=== PATIENT | female | born 1960 | race Caucasian/White ===

== ENCOUNTER 2021-01-28 11:21 | Outpatient (CLI) | payer OTHER, SELFPAY ==
--- NOTE | ~2021-01-28 | MMUS_ITS ---
EXAMINATION: MM diagnostic shahrzad BI w alton, US breast LT limited HISTORY: Palpable lump at the 12:00 location in the left breast. TECHNIQUE: Craniocaudal, mediolateral, and mediolateral oblique 3-D tomosynthesis images of the breas ts were performed and synthetic 2-D images were generated. CAD analysis was submitted and interpreted . High resolution limited left breast ultrasound was performed. COMPARISON: 04/18/2012 BREAST PARENCHYMAL COMPOSITION: There are scattered areas of fibroglandular density. FINDINGS: MAMMOGRAPHIC FINDINGS: There is no evidence of suspicious mass, calcification, or architectural distortion in either breast to suggest malignancy. There has been no suspicious interval change. No mammographic correlate is id entified for the reported palpable abnormality of the left breast. ULTRASOUND: There is no evidence of focal abnormal solid or cystic mass in the vicinity of the reported palpable abnormality of concern in the left breast. IMPRESSION: 1. No specific mammographic or sonographic correlate is identified for the reported palpable abnormal ity of concern. Further evaluation at this time should be based on clinical assessment. Continued fol low-up physical examination is recommended. 2. Recommend routine screening mammography in one year. BI-RADS Category 1: Negative Reviewed, dictated and finalized at location A. IMPRESSION: 1. No specific mammographic or sonographic correlate is identified for the repo rted palpable abnormality of concern. Further evaluation at this time should be based on clinical assessment. Continued follow-up physical examination is caitlin mmended. 2. Recommend routine screening mammography in one year. BI-RADS Category 1: Negative
== END 2021-01-28 11:22 | disposition home or self-care (01) ==
PROVIDERS: PCP Internal Medicine; Visit Provider Nurse Practitioner
DX: N63.20 Unspecified lump in the left breast, unspecified quadrant (principal); R92.2 Inconclusive mammogram
CPT/HCPCS: 76642; 77062; 77066; G0279

== ENCOUNTER 2021-07-01 13:57 | Outpatient (CLI) | payer OTHER, SELFPAY ==
--- NOTE | 2021-07-01 15:08 | ECG_ITS ---
Measurements Intervals [place] Rate: 74 P: 49 ND: 176 QRS: 8 QRSD: 94 T: 53 QT: 374 QTc: 416 Interpretive Statements SINUS RHYTHM DELAYED PRECORDIAL R/S TRANSITION LEFT VENTRICULAR HYPERTROPHY BASELINE ARTIFACT- I, II ,III, AVR, AVL, AVF BORDERLINE ECG Electronically Signed On 07-01-2021 15:25:47 CDT by Wilberto Stanley D.O.
[2021-07-01 15:29] LABS: Basophils Absolute Auto 0.1 K/mm3 (0.0-0.1); Basophils Percent Auto 0.6 % (0.2-1.2); Eosinophils Absolute Auto 0.2 K/mm3 (0-0.3); Eosinophils Percent Auto 2.2 % (0-4.4); Hematocrit 39.9 % (37.0-47.0); Immature Granulocyte Absolute 0.04 K/mm3 (0.00-0.031); Immature Granulocyte Percent A 0.4 % (0-0.5); Lymphocytes Absolute Auto 2.69 K/mm3 (0.9-3.2); Lymphocytes Percent Auto 28.5 % (18.3-44.2); Mean Corpuscular HGB Conc 32.6 g/dl (32-36); Mean Corpuscular Hemoglobin 31.4 pg (26-34); Mean Corpuscular Volume 96.4 fl (80-100); Mean Platelet Volume 9.2 fl (7.4-10.4); Monocytes Absolute Auto 0.7 K/mm3 (0.1-0.6); Monocytes Percent Auto 7.8 % (2.6-8.5); Neutrophils Absolute Auto 5.7 K/mm3 (1.3-6.7); Neutrophils Percent Auto 60.5 % (45.5-73.1); Platelet Count Result 340 k/mm3 (150-375); Red Blood Count 4.14 M/mm3 (4.2-5.4); Red Cell Distribution Width 12.6 % (11.5-14.5); White Blood Count 9.4 K/mm3 (4.5-10.0)
[2021-07-01 16:24] LABS: Urine Cotinine POSITIVE
== END 2021-07-01 13:58 | disposition home or self-care (01) ==
PROVIDERS: PCP Internal Medicine; Visit Provider Orthopaedic Surgery
DX: M16.12 Unilateral primary osteoarthritis, left hip (principal); Z01.818 Encounter for other preprocedural examination; R94.31 Abnormal electrocardiogram [ECG] [EKG]
CPT/HCPCS: 80307; 85025; 86850; 86900; 86901; 93005

== ENCOUNTER → 2021-07-02 00:58 | Outpatient (CLI) | payer OTHER, SELFPAY ==
[2021-07-02 17:04] LABS: SARS-CoV-2 RNA PCR Negative
== END ==
PROVIDERS: PCP Internal Medicine; Visit Provider Orthopaedic Surgery
DX: Z01.812 Encounter for preprocedural laboratory examination (principal); Z20.822 Contact with and (suspected) exposure to COVID-19
CPT/HCPCS: C9803; U0003; U0005

== ENCOUNTER 2021-12-05 10:30 | Outpatient (CLI) | payer OTHER, SELFPAY ==
[2021-12-05 12:38] LABS: Basophils Absolute Auto 0.1 K/mm3 (0.0-0.1); Basophils Percent Auto 0.6 % (0.2-1.2); Eosinophils Absolute Auto 0.1 K/mm3 (0-0.3); Eosinophils Percent Auto 0.8 % (0-4.4); Hematocrit 40.1 % (37.0-47.0); Hemoglobin 12.9 g/dL (12.0-15.0); Immature Granulocyte Absolute 0.02 K/mm3 (0.00-0.031); Immature Granulocyte Percent A 0.2 % (0-0.5); Lymphocytes Absolute Auto 2.23 K/mm3 (0.9-3.2); Lymphocytes Percent Auto 25.6 % (18.3-44.2); Mean Corpuscular HGB Conc 32.2 g/dl (32-36); Mean Corpuscular Hemoglobin 30.4 pg (26-34); Mean Corpuscular Volume 94.6 fl (80-100); Mean Platelet Volume 9.5 fl (7.4-10.4); Monocytes Absolute Auto 0.5 K/mm3 (0.1-0.6); Monocytes Percent Auto 5.7 % (2.6-8.5); Neutrophils Absolute Auto 5.8 K/mm3 (1.3-6.7); Neutrophils Percent Auto 67.1 % (45.5-73.1); Platelet Count Result 370 k/mm3 (150-375); Red Blood Count 4.24 M/mm3 (4.2-5.4); Red Cell Distribution Width 13.2 % (11.5-14.5); White Blood Count 8.7 K/mm3 (4.5-10.0)
[2021-12-05 12:48] LABS: Add Urine Microscopic? YES; Appearance Urine Cloudy (Clear); Bilirubin Urine Negative (Negative); Blood Urine 1+ (Negative); Color Urine Yellow (Yellow); Glucose Urine UA Negative (Negative); Ketones Urine Negative (Negative); Leukocyte Esterase Ur Negative LEU/UL (Negative); Mucus Urine Rare /lpf; Nitrate Urine Negative (Negative); Protein Urine Negative (Negative); RBC Urine 0-2 /hpf (0-2); Specific Grav Ur 1.026 (1.001-1.035); Squamous Epithelial Cell Urine Rare /hpf (Few); Urobilinogen Urine Negative mg/dL (<2.0); WBC Urine 0-3 /hpf
[2021-12-05 12:58] LABS: Prothrombin Time 12.9 Seconds (11.1-14.7)
[2021-12-05 12:59] LABS: Partial Thromboplastin Time 31.2 SECONDS (22.3-36.8); Urine Cotinine NEGATIVE
[2021-12-05 13:02] LABS: Albumin Level 4.4 g/dL (3.5-5.1); Anion Gap 5 mmol/L (8-16); Blood Urea Nitrogen 17 mg/dL (7-17); Calcium 9.1 mg/dL (8.4-10.2); Carbon Dioxide 29 mmol/L (22-30); Chloride 105 mmol/L (98-107); Estimated Glomerular Filt Rate > 60; Glucose 91 mg/dL (65-110); Sodium 139 mmol/L (137-145)
== END 2021-12-05 10:31 | disposition home or self-care (01) ==
LOC: ANHSURGERY 10:34
PROVIDERS: PCP Internal Medicine; Visit Provider Orthopaedic Surgery
DX: M16.12 Unilateral primary osteoarthritis, left hip (principal); Z01.818 Encounter for other preprocedural examination
CPT/HCPCS: 80048; 80307; 81001; 82040; 83036; 85025; 85610; 85730; 87081

== ENCOUNTER 2021-12-20 11:17 | Inpatient (IN) | payer OTHER, SELFPAY ==
[2021-12-05 10:40] VITALS: BMI 27.6
--- NOTE | 2021-12-05 11:00 | PC.NURSE ---
Report to the Outpatient Waiting Room, entrance under the green pavilion located off [facility], at time _0600 on date _12/20/21 . OR Time: . - You and your visitor will be asked a series of questions to screen for COVID 19 for your protection. - A mask is required within the hospital. Preoperative COVID Testing Requirements: No COVID Test needed if: (proof is required; if not received patient will have Rapid Test prior to entry) - Patient has received COVID Vaccine at least 14 days prior to procedure date or - Patient has positive COVID test result within last 90 days of surgery date. COVID Test needed if above criteria is not met If not COVID vaccinated a COVID test must be conducted within 72 hours of surgery and patient is asked to isolate self from time of testing until procedure. You will go to the [facility] for your COVID testing. The [facility] is located at the corner of [address] [facility]. You will only be called if COVID results are positive and your surgeon may reschedule your elective surgery date. Patients may have clear liquids (water, carbonated beverages, clear teas, apple juice) until 3 hours prior to surgery with a maximum of 20 ounces. - No food from midnight until time of surgery - Infants may have breast milk until 4 hours before surgery, formula 6 hours prior to surgery. - Children will be allowed to drink immediately following surgery. If applicable, please bring a bottle or sippy cup to assist with drinking. Juice, water, soda, and popsicles are readily available. For infants on formula, please bring formula the day of surgery. Pacifiers are allowed. Take the following medications with a SIP of water the morning of surgery: ___AMLODIPINE,CITALOPRAM,DIAZEPAM Medications to discontinue per physician ____ALL VITAMINS AND SUPPLEMENTS 3 DAYS PRE OP Date to take last dose__12/16/21 Please no make-up, nail uzbek, hairspray, perfume, deodorant, or body powder the day of surgery. No jewelry (including any body piercings) or valuables the day of surgery, leave them at home. Please take a shower or bath the night before, or the morning of, surgery with an antibacterial soap. Wear comfortable, loose fitting clothing. Children are encouraged to wear pajamas. - Jewelry must be removed prior to entering the operating room. Rings and piercings that are not removed may be cut off. - The hospital will not accept responsibility for valuables. - Please leave all valuables, including medications, at home the day of surgery. If you are going home after surgery, a licensed petrol tanker driver must drive you home. - NO public transportation without another adult. - We recommend that an adult stay with you for 24 hours following discharge. - We also recommend that you do not drive, make important decision, drink alcoholic beverages, or take any drugs that were not prescribed by your health care provider for at least 24 hours after your discharge time. For Pediatric surgeries, we recommend two adults accompany the child home (only one inside the building at this time). One visitor will be allowed to accompany the patient into the hospital. Patients visitor will be instructed to remain with patient at all times or leave the building. We will allow the visitor to come back to the postoperative area when patient is ready. Follow any additional instructions given to you from your surgeon. VERBAL/WRITTEN instructions given to __PATIENT and asked if any additional questions and then verbalized understanding. Patient advised to call surgeon office or pre surgery nurse liaison [phone] if any additional questions.
[2021-12-05 11:22] VITALS: BP 123/71; PULSE 72; RESP 18; TEMP 36.7; O2SAT 98
[2021-12-20] VITALS (17 sets, daily range): BP systolic 110–151; BP diastolic 53–76; PULSE 67–90; RESP 12–17; TEMP 36.1–37.5; O2SAT 93–100
--- NOTE | ~2021-12-20 | XR_ITS ---
EXAMINATION: XR hip LT 1V DATE: 12/20/2021 10:25 INDICATION: Left hip arthroplasty. Postop. TECHNIQUE: A single view of left hip was obtained. COMPARISON: Pelvis and hip radiographs 09/01/2021 FINDINGS: There is a total left hip arthroplasty in near-anatomic alignment. No fracture. IMPRESSION: 1. Total left hip arthroplasty in near-anatomic alignment. Reviewed, dictated and finalized at location A.
[2021-12-20] MEDS: ACETAMINOPHEN 500 MG TABLET 1000 MG PO (06:19)
--- NOTE | 2021-12-20 06:30 | WPDANESEPPF ---
Anes - Initial Pre Proc Eval Procedure: Operation Date: 12/20/21 07:30 Proposed Procedures p Left Total Hip Arthroplasty - Christopher Jeter MD Date/Time: 12/20/21 06:30 Surgeon: Christopher Jeter MD Pre Op Diagnosis: Lt Hip DJD Patient Data Age: 61 Gender: F Height: 1.61 m Weight: 71.4 kg Last Vital Signs Temp 36.7 C 12/05/21 11:22 Pulse 72 12/05/21 11:22 Resp 18 12/05/21 11:22 BP 123/71 12/05/21 11:22 Pulse Ox 98 12/05/21 11:22 Allergies Allergy/AdvReac Type Severity Reaction Status Date / Time No Known Allergies Allergy Mild Verified 12/20/21 06:07 Home Medications Medication Instructions Recorded Confirmed Type diphenhydramine HCl [Benadryl] 50 mg PO HS 07/01/21 12/20/21 History citalopram 40 mg tablet 40 mg PO QAM #90 tablet 07/18/21 12/20/21 Rx diazepam 5 mg tablet 5 mg PO TID PRN #90 tablet 09/15/21 12/20/21 Rx dextroamphetamine-amphetamine 15 15 mg PO BID #60 tablet 11/17/21 12/20/21 Rx mg tablet amlodipine 10 mg tablet 10 mg PO EVERY OTHER DAY tablet 12/05/21 12/20/21 History melatonin 10 mg PO HS PRN 12/05/21 12/20/21 History pediatric tyczspxd-fnki-sib 1 tablet PO DAILY 12/05/21 12/20/21 History [Complete Multivitamin] Patient hx anesthesia problems: none Family hx anesthesia problems: none Results Review: All pre-operative results and documents have been reviewed as part of the pre-operative evaluation. [facility] Past Medical History Medical History ADHD (attention deficit hyperactivity disorder) Adult ADHD Angioedema Anxiety state Benign essential hypertension BMI 31.0-31.9,adult Chronic hip pain, bilateral Chronic right hip pain Degenerative joint disease (DJD) of hip Depressive disorder Depressive disorder, not elsewhere classified Encounter for long-term (current) use of other medications Fasting hyperglycemia FH: cholecystectomy GERD (gastroesophageal reflux disease) Insomnia disorder Left hip pain On buttermaker continuous churn drug therapy Osteoarthrosis Postmenopausal Screening for colon cancer Screening for lipid disorders Screening mammogram, encounter for Smoking Unspecified sinusitis (chronic) Vitamin D deficiency Surgical History Surgical History History of cholecystectomy Family History Family History Father Cerebrovascular accident Mother Family history of malignant neoplasm Other Depression Diabetes mellitus Hypertension Social History Social History Smoking packs per day: 0.25 Smoking cigarettes per day: 5.0 Years smoked: 8 Smoking pack-years: 2.00 Smoking status: Former smoker Tobacco type: cigarettes Second hand tobacco smoke exposure: No Smoking end date: 08/17/21 Additional smoking assessment comments: DENIES ANY FORM OF TOBACCO USE Alcohol intake: never Substance use: current Substance use type: amphetamines Other substance usage details: Adderall for ADHD Living arrangements: alone Gender identity (if verbalized by the patient): Female Spiritual care concerns: No Anes - Eval Final PreProcedure Day of Procedure 12/20/21 06:30 Patient weight: overweight Heart: regular rate and rhythm Lungs: clear to auscultation Airway: Mallampati scale class II Neurological: alert and oriented Last oral intake: >/= 8 hours ASA classification: II Emergent: no Anesthetic plan: proceed Anesthesia type and monitoring: general ETT and standard monitoring Results Review: All pre-operative results and documents have been reviewed as part of the pre-operative evaluation. Informed Consent: The patient's anesthetic plan and its attendant risks and benefits were discussed with the patient/family/POA. Questions were solicited and answers provided to the satisfaction of the patient/family/POA.
[2021-12-20] MEDS: LACTATED RINGERS 1,000 ML 30 ML IV CONT ×2 (06:32→10:04)
[2021-12-20] MEDS: TRANEXAMIC ACID 1,000MG/ISO100 1,000 MG/100 ML BAG 200 MG IVPB (06:59)
--- NOTE | 2021-12-20 07:21 | WPDHPUPDATE1 ---
History and Physical Update Update Date/Time: 12/20/21 07:21 History and Physical has been reviewed, including an updated exam of the patient. There are NO changes in the patient's condition. Risks, benefits, and alternatives have been discussed and questions answered. Patient agrees to proceed with procedure.
[2021-12-20] MEDS: ceFAZolin 2 GM/D5W 50 ML 2 GM/50 ML BAG IVPB ×2 (07:32→15:15)
[2021-12-20] MEDS: TRANEXAMIC ACID 1,000 MG/10 ML AMPUL 1000 MG IV PUSH (09:37)
[2021-12-20] MEDS: fentaNYL CITRATE INJ (*CRX) 100 MCG/2 ML VIAL 25 MCG IV PUSH ×6 (10:13→10:53)
--- NOTE | 2021-12-20 10:14 | W.PM.PROC2 ---
Procedure Note - Detailed Date of Procedure 12/20/21 Pre-op Diagnosis Lt Hip DJD Post-op Diagnosis Same Procedure Performed L ZONIA Surgeon Christopher Jeter MD Anesthesia General Description of Procedure THE PATIENT WAS TAKEN TO THE OPERATING ROOM IN STABLE CONDITION AND WAS PLACED IN THE LATERAL DECUBITUS AND THE LEFT LOWER EXTREMITY WAS PREPPED AND DRAPED IN THE STERILE FASHION. INCISION WAS MADE IN THE POSTERIOR LATERAL SIDE OF THE HIP, DOWN TO THE FASCIA LAYER. THE FASCIA WAS INCISED. THE HIP WAS EXPOSED. THE SHORT EXTERNAL ROTATORS WERE EXPOSED. THE SCIATIC NERVE WAS IDENTIFIED. INCISION WAS MADE THROUGH THE SHORT EXTERNAL ROTATORS AND THE CAPSULE OF THE HIP JOINT. THE HIP WAS DISLOCATED. AN OSTEOTOMY WAS MADE TO THE FEMORAL NECK ABOUT 1 CM PROXIMAL TO THE LESSER TROCHANTER. THE ACETABULUM WAS EXPOSED. THERE WAS SEVERE DJD SEEN. BEGINNING WITH A 44 REAMER THE ACETABULUM WAS REAMED TO 51 MM. A 50 MM TRIAL WAS PLACED IN 35 DEG OF ABDUCTION AND ANTEVERSION WAS IN ALIGNMENT WITH THE TRANS ACETABULAR LIGAMENT. THE FIT WAS EXCELLENT. THE TRIAL WAS REMOVED. A 52 MM BIOMET G7 COMPONENT WAS THEN TAPPED IN TO PLACE IN 35 DEG OF ABDUCTION AND ANTEVERSION IN ALIGNMENT WITH THE TRANSVERSE ACETABULAR LIGAMENT. THE FIT WAS EXCELLENT. THE ACETABULAR LINER WAS PLACED AND CHECKED FOR STABILITY. NEXT THE FEMUR WAS PREPARED WITH INITIAL CANAL FINDER THEN SEQUENTIAL BROACHING WITH A TAPERLOC HIP SYSTEM, UNTIL AN 8 BROACH FIT WELL IN 15 OF ANTEVERSION. A 0 STANDARD OFFSET NECK WITH 36 MM HEAD TRIAL WAS PLACED. THE SHUCK TEST WAS EXCELLENT AND THE STABILITY IN FLEXION AND ROTATION WAS EXCELLENT. LEG LENGTHS WERE GROSSLY EQUAL. TRIALS WERE REMOVED. A BIOMET TAPERLOC 8 STEM WAS PLACED WITH A STANDARD OFFSET NECK THE FIT WAS EXCELLENT IN 15 DEG OF ANTEVERSION. A 0 CERAMIC 36 MM FEMORAL CERAMIC HEAD WAS PLACED. THE HIP WAS TRIALED AND THE STABILITY WAS EXCELLENT WERE THE LEG LENGTHS AND THE SHUCK TEST. THE WOUND WAS IRRIGATED WITH STERILE BETADINE AND WATER FOR 3 MIN. THEN WASHED AGAIN. THE CAPSULE AND THE EXTERNAL ROTATORS WERE APPROXIMATED WITH NUMBER 1 VICRYL. THE FASCIA WITH No 2 QUIL AND THE SUB CUTANEOUS LAYER WITH 2-0 ABSORBABLE SUTURE WITH A RUNNING 3-0 SUBCUTICULAR LAYER WELL. DERMABOND WAS PLACED AND STERILE DRESSING WAS APPLIED. PATIENT WAS PLACED BACK ON TO THE SUPINE POSITION AND WAS EXTUBATED Estimated Blood Loss -250.0 Complications No immediate complications Condition Stable Disposition PACU
[2021-12-20] MEDS: diphenhydrAMINE HCl INJ 50 MG/ML VIAL 25 MG IV PUSH (11:00)
--- NOTE | 2021-12-20 11:43 | ADMGEN ---
This patient, Laura Castro, was admitted to 2 Medical Room 259-01. Patient/family oriented to hospital policies and general routines including ID bracelet, bed and alarms, visiting hours, pain management, procedures, bathroom and other care routines, personal items, smoking policy, room service/diet, and visiting hours. Information on how to activate the Rapid Response Team has been discussed. Patient/Family are encouraged to report perceived risks to care and to ask questions if they do not understand what they are told or what they should do.
[2021-12-20] MEDS: KETOROLAC 15 MG/ML VIAL (*BKC) IV PUSH ×2 (11:57→17:01)
[2021-12-20] MEDS: SODIUM CHLORIDE 0.9% IV 1,000 ML 125 ML IV CONT (11:58)
[2021-12-20] MEDS: HYDROcodone/acetaminophen (*CRX) 7.5-325 MG TABLET 1 TAB PO ×2 (14:01→21:38)
[2021-12-20] MEDS: SENNA/DOCUSATE SODIUM TABLET 2 TAB PO (17:01)
[2021-12-20] MEDS: diphenhydrAMINE HCl CAP 25 MG CAPSULE 50 MG PO (21:37)
[2021-12-20] MEDS: MORPHINE SULFATE (*CRX) 4 MG/ML INJ 3 MG IV PUSH (22:40)
[2021-12-21] MEDS: KETOROLAC 15 MG/ML VIAL (*BKC) IV PUSH ×3 (00:24→11:04)
[2021-12-21] MEDS: ceFAZolin 2 GM/D5W 50 ML 2 GM/50 ML BAG IVPB ×2 (00:27→08:41)
[2021-12-21 04:15] VITALS: BP 122/58; PULSE 80; RESP 17; TEMP 37.2; O2SAT 95
[2021-12-21 05:47] LABS: Basophils Percent Auto 0.3 % (0.2-1.2); Eosinophils Percent Auto 0.2 % (0-4.4); Hematocrit 31.4 % (37.0-47.0); Hemoglobin 10.7 g/dL (12.0-15.0); Immature Granulocyte Absolute 0.08 K/mm3 (0.00-0.031); Immature Granulocyte Percent A 0.6 % (0-0.5); Lymphocytes Absolute Auto 2.34 K/mm3 (0.9-3.2); Lymphocytes Percent Auto 16.4 % (18.3-44.2); Mean Corpuscular HGB Conc 34.1 g/dl (32-36); Mean Corpuscular Hemoglobin 30.9 pg (26-34); Mean Corpuscular Volume 90.8 fl (80-100); Mean Platelet Volume 8.8 fl (7.4-10.4); Monocytes Absolute Auto 1.3 K/mm3 (0.1-0.6); Monocytes Percent Auto 9.2 % (2.6-8.5); Neutrophils Absolute Auto 10.4 K/mm3 (1.3-6.7); Neutrophils Percent Auto 73.3 % (45.5-73.1); Platelet Count Result 252 k/mm3 (150-375); Red Blood Count 3.46 M/mm3 (4.2-5.4); Red Cell Distribution Width 12.8 % (11.5-14.5); White Blood Count 14.2 K/mm3 (4.5-10.0)
[2021-12-21 05:56] LABS: Anion Gap 4 mmol/L (8-16); Blood Urea Nitrogen 14 mg/dL (7-17); Calcium 8.4 mg/dL (8.4-10.2); Carbon Dioxide 28 mmol/L (22-30); Chloride 103 mmol/L (98-107); Estimated CRCL calculation 69 ml/min; Estimated Glomerular Filt Rate > 60; Glucose 113 mg/dL (65-110); Potassium 3.9 mmol/L (3.4-5.0); Sodium 135 mmol/L (137-145)
[2021-12-21] MEDS: polyethylene glycoL 3350 17 GM POWD.PACK PO (08:41)
[2021-12-21] MEDS: ASPIRIN 325 MG ENTERIC TABLET 650 MG PO (08:41)
[2021-12-21] MEDS: SENNA/DOCUSATE SODIUM TABLET 2 TAB PO ×2 (08:41→16:07)
[2021-12-21] MEDS: MULTIVITS W-FE,MIN CHEWABLE TABLET 1 TABLET PO (08:41)
[2021-12-21] MEDS: CITALOPRAM HYDROBROMIDE 20 MG TABLET 40 MG PO (08:41)
[2021-12-21] MEDS: HYDROcodone/acetaminophen (*CRX) 7.5-325 MG TABLET 1 TAB PO (08:52)
--- NOTE | 2021-12-21 09:18 | WPDANESPN ---
Anes - Prog Note Post-Op Date/Time: 12/21/21 09:18 Cardiovascular status: normal Respiratory status: normal Airway patency: baseline Mental status: baseline Post-Op hydration status: normal Vital Signs: Last Vital Signs Temp 98.9 F 12/21/21 04:15 Pulse 80 12/21/21 04:15 Resp 17 12/21/21 04:15 BP 122/58 L 12/21/21 04:15 Pulse Ox 95 12/21/21 04:15 Pain Score (VAS): 4 I/O: Intake & Output 12/20/21 12/21/21 12/21/21 23:59 07:59 15:59 Intake Total 640 450 0 Output Total 700 900 Balance -60 -450 0 Laboratory Tests 12/21/21 05:32 12/21/21 05:33 12/21/21 12/21/21 05:32 05:33 WBC 14.2 H RBC 3.46 L Hgb 10.7 L Hct 31.4 L MCV 90.8 MCH 30.9 MCHC 34.1 RDW 12.8 Plt Count 252 MPV 8.8 Immature Gran % (Auto) 0.6 H Neut % (Auto) 73.3 H Lymph % (Auto) 16.4 L Armstrong % (Auto) 9.2 H Eos % (Auto) 0.2 Baso % (Auto) 0.3 Lymph # (Auto) 2.34 Armstrong # (Auto) 1.3 H Eos # (Auto) 0.0 Baso # (Auto) 0.0 Abs Immat Gran (auto) 0.08 H Absolute Neuts (auto) 10.4 H Absolute Nucleated RBC 0.0 Nucleated RBC % 0.0 Sodium 135 L Potassium 3.9 Chloride 103 Carbon Dioxide 28 Anion Gap 4 L BUN 14 Creatinine 0.70 Estim Creat Clear Calc 69 Estimated GFR > 60 Glucose 113 H Calcium 8.4 Post-procedural complaints: none Patient Feedback: Patient satisfied with anesthetic care.
[2021-12-21] MEDS: ONDANSETRON INJ 4 MG/2 ML VIAL IV PUSH (09:36)
[2021-12-21 09:50] VITALS: BP 114/59; PULSE 75; RESP 12; TEMP 36.6; O2SAT 95
[2021-12-21] MEDS: PANTOPRAZOLE 40 MG TABLET PO (13:08)
[2021-12-21 13:55] VITALS: BP 112/58; PULSE 74; RESP 16; TEMP 36.9; O2SAT 95
--- NOTE | 2021-12-21 15:35 | PM.PNORT ---
Progress Note: A&P Additional Plan POD 1 DOING WELL. OK TO DC HOME IF PATIENT STABLE WITH PT. SHE WILL F/U IN 3 WEEKS Time Spent With Patient Time with patient: less than 15 minutes Subjective Subjective Date/Time Seen: 12/21/21 15:35 POD 1 DOING WELL. NO CALF PAIN Exam Extrem: Other: VSS AFEBRILE DRESSING DRY NV INTACT NEG HOMANS SIGN Objective Data Vital Signs Vital Signs: Vital Signs - 24 hr 12/20/21 17:02 12/20/21 20:00 12/20/21 20:11 Temperature 36.4 C 36.2 C L 36.2 C L Pulse Rate 68 77 77 Respiratory Rate 16 16 16 Blood Pressure 118/64 134/76 134/76 Pulse Oximetry 96 99 99 12/20/21 23:00 12/21/21 04:15 12/21/21 09:50 Temperature 37.5 C 37.2 C 36.6 C Pulse Rate 85 80 75 Respiratory Rate 17 17 12 Blood Pressure 120/65 122/58 L 114/59 L Pulse Oximetry 95 95 95 12/21/21 13:55 Temperature 36.9 C Pulse Rate 74 Respiratory Rate 16 Blood Pressure 112/58 L Pulse Oximetry 95 Intake/Output Intake/Output: Intake & Output 12/18/21 12/19/21 12/20/21 12/21/21 23:59 23:59 23:59 23:59 Intake Total 1230 1170 Output Total 700 900 Balance 530 270 Meds/Results Medications: Active Medications Generic Name Dose Route Start Last Admin Trade Name Freq PRN Reason Stop Dose Admin Acetaminophen 650 mg 12/20/21 11:17 Acetaminophen 325 Mg Tablet PO Q6H PRN Mild Pain (1-3) or Fever Hydrocodone Bitart/Acetaminophen 1 tab 12/20/21 11:17 12/21/21 08:52 Hydrocodone/Acetaminophen (*Crx) 7.5-325 Mg Tablet PO 1 tab Q3H PRN Administration Pain Rated 4-6 Amlodipine Besylate 10 mg 12/22/21 09:00 Amlodipine Besylate 5 Mg Tablet PO Q48H MEETA Aspirin 650 mg 12/21/21 09:00 12/21/21 08:41 Aspirin 325 Mg Enteric Tablet PO 650 mg DAILY MEETA Administration Citalopram Hydrobromide 40 mg 12/21/21 09:00 12/21/21 08:41 Citalopram Hydrobromide 20 Mg Tablet PO 40 mg QAM MEETA Administration Diazepam 5 mg 12/20/21 11:17 Diazepam (*Crx) 5 Mg Tablet PO TID PRN anxiety Diphenhydramine HCl 50 mg 12/20/21 21:00 12/20/21 21:37 Diphenhydramine Hcl Cap 25 Mg Capsule PO 50 mg HS MEETA Administration Hydroxyzine HCl 50 mg 12/20/21 11:17 Hydroxyzine Hcl 25 Mg Tablet PO Q4H PRN Itching Morphine Sulfate 3 mg 12/20/21 11:17 12/20/21 22:40 Morphine Sulfate (*Crx) 4 Mg/Ml Inj IV PUSH 3 mg Q3H PRN Administration Pain Rated 7-10 Multivitamins/Minerals 1 tablet 12/21/21 09:00 12/21/21 08:41 Multivits W-Fe,Min Chewable Tablet PO 1 tablet DAILY MEETA Administration Naloxone HCl 0.1 mg 12/20/21 11:17 Naloxone Hcl 0.4 Mg/Ml Vial IV PUSH Q2M PRN Opiate Reversal Ondansetron HCl 4 mg 12/20/21 11:17 12/21/21 09:36 Ondansetron Inj 4 Mg/2 Ml Vial IV PUSH 4 mg Q4H PRN Administration Nausea And Vomiting Pantoprazole Sodium 40 mg 12/21/21 12:45 12/21/21 13:08 Pantoprazole 40 Mg Tablet PO 40 mg QAM MEETA Administration Polyethylene Glycol 17 gm 12/21/21 09:00 12/21/21 08:41 Polyethylene Glycol 3350 17 Gm Powd.Pack PO 17 gm QAM [facility] Administration Senna/Docusate Sodium 2 tab 12/20/21 17:00 12/21/21 08:41 Senna/Docusate Sodium Tablet PO 2 tab BID MEETA Administration Radiology Results: ITS Impressions Hip X-Ray 12/20/21 10:47 IMPRESSION: 1. Total left hip arthroplasty in near-anatomic alignment. Labs Labs: Laboratory Results - last 24 hr 12/21/21 12/21/21 05:32 05:33 WBC 14.2 H RBC 3.46 L Hgb 10.7 L Hct 31.4 L MCV 90.8 MCH 30.9 MCHC 34.1 RDW 12.8 Plt Count 252 MPV 8.8 Immature Gran % (Auto) 0.6 H Neut % (Auto) 73.3 H Lymph % (Auto) 16.4 L Beauregard % (Auto) 9.2 H Eos % (Auto) 0.2 Baso % (Auto) 0.3 Lymph # (Auto) 2.34 Beauregard # (Auto) 1.3 H Eos # (Auto) 0.0 Baso # (Auto) 0.0 Abs Immat Gran (auto) 0.08 H Absolute Neuts (auto) 10.4 H Absolute Nucleated RBC 0.0 Nucleated RBC % 0.0
[2021-12-21] MEDS: MORPHINE SULFATE (*CRX) 4 MG/ML INJ 3 MG IV PUSH (16:11)
[2021-12-21 17:40] VITALS: BP 115/63; PULSE 77; RESP 14; TEMP 36.2; O2SAT 93
[2021-12-21 19:52] VITALS: BP 109/64; PULSE 80; RESP 17; TEMP 36.4; O2SAT 95
[2021-12-21 20:14] VITALS: O2SAT 95
[2021-12-21] MEDS: diphenhydrAMINE HCl CAP 25 MG CAPSULE 50 MG PO (20:50)
[2021-12-21] MEDS: oxyCODONE/ACETAMINOPHEN (*CRX) 5-325 MG TABLET 1 TABLET PO (21:07)
[2021-12-22 04:22] VITALS: BP 121/60; PULSE 85; RESP 17; TEMP 36.4; O2SAT 95
[2021-12-22 08:36] VITALS: RESP 18; O2SAT 95
[2021-12-22] MEDS: CITALOPRAM HYDROBROMIDE 20 MG TABLET 40 MG PO (08:46)
[2021-12-22] MEDS: amLODIPine BESYLATE 5 MG TABLET 10 MG PO (08:47)
[2021-12-22] MEDS: MULTIVITS W-FE,MIN CHEWABLE TABLET 1 TABLET PO (08:47)
[2021-12-22] MEDS: PANTOPRAZOLE 40 MG TABLET PO (08:47)
[2021-12-22] MEDS: SENNA/DOCUSATE SODIUM TABLET 2 TAB PO ×2 (08:47→16:33)
[2021-12-22] MEDS: polyethylene glycoL 3350 17 GM POWD.PACK PO (08:47)
[2021-12-22] MEDS: ASPIRIN 325 MG ENTERIC TABLET 650 MG PO (08:47)
[2021-12-22] MEDS: oxyCODONE/ACETAMINOPHEN (*CRX) 5-325 MG TABLET 1 TABLET PO ×2 (08:53→16:36)
--- NOTE | 2021-12-22 09:38 | PM.PNORT ---
Progress Note: A&P Assessment and Plan (1) S/P total hip arthroplasty: Qualifiers: Laterality: left Qualified Code(s): Z96.642 - Presence of left artificial hip joint Code(s): Z96.649 - Presence of unspecified artificial hip joint Status: Acute Assessment and Plan: POD #2: Left ZONIA Continue PT/OT. WBAT. Walker. Fall Precautions. DVT prophylaxis. SCDs. Incentive Spirometry. Pain control. Ice. Monitor dressing. Change before discharge. Dispo: Home with Home Health pending progress with PT/OT. Likely today. (2) Degenerative joint disease (DJD) of hip: Qualifiers: Osteoarthritis type: primary Laterality: bilateral Qualified Code(s): M16.0 - Bilateral primary osteoarthritis of hip Code(s): M16.9 - Osteoarthritis of hip, unspecified Status: Acute Time Spent With Patient Time with patient: less than 15 minutes Subjective Subjective Date/Time Seen: 12/22/21 09:38 Interval history: POD #2: Left ZONIA Improved progress with PT/OT this morning. Pain improved as well. Potential for discharge home today. Review of Systems Review of Systems: All systems reviewed & are unremarkable except as noted in HPI and below Constitutional: Constitutional: Denies chills, Denies fatigue, Denies fever(s), Denies night sweats and Denies weakness Cardiovascular: Cardiovascular: Denies chest pain, Denies palpitations and Denies dyspnea Respiratory: Respiratory: Denies cough, Denies dyspnea and Denies wheezing Gastrointestinal: Gastrointestinal: Denies abdominal pain, Denies diarrhea, Denies nausea and Denies vomiting Musculoskeletal: Musculoskeletal: Reports arthralgias (left hip ), Reports joint swelling (left hip ) and Denies numbness Neurologic: Denies numbness and Denies weakness Endocrine: Endocrine: Denies fatigue and Denies palpitations Allergic/Immunologic: Allergic/Immunologic: Denies wheezing Exam Const: General: comfortable and no acute distress Resp: Effort & Inspection: normal respiratory effort Cardio: Rate: regular rate Rhythm: regular rhythm GI: Inspection: non-distended Skin: General skin exam: normal color Wounds: wounds noted (incision left hip C/D/I ) Extrem: Left lower extremity: hip/thigh Details: tenderness Location: of the hip Location: laterally and anteriorly, swelling (thigh soft ) Location: of the hip (lateral. ), abnormal ROM (limitations with internal/external rotation and flexion/extension due to recent surgical intervention ) and other (incision lateral hip c/d/i. ), knee Details: normal to inspection and normal ROM; no tenderness and no swelling, lower leg (Negative Villa's Sign ) Details: no edema, ankle (+ankle dorsiflexion/plantarflexion ) Details: normal to inspection, no edema and normal ROM; no tenderness, no swelling and no warmth and foot Details: normal capillary refill, toes with normal ROM, vascular exam Details: dorsalis pedis pulse present and motor-sensory exam light-touch normal in all toes; no tenderness, no ecchymosis and no crepitus Psych: Mental Status: mental status grossly normal Affect: normal affect Objective Data Vital Signs Vital Signs: Vital Signs - 24 hr 12/21/21 09:50 12/21/21 13:55 12/21/21 17:40 Temperature 36.6 C 36.9 C 36.2 C L Pulse Rate 75 74 77 Respiratory Rate 12 16 14 Blood Pressure 114/59 L 112/58 L 115/63 Pulse Oximetry 95 95 93 12/21/21 19:52 12/21/21 20:14 12/22/21 04:22 Temperature 36.4 C L 36.4 C L Pulse Rate 80 85 Respiratory Rate 17 17 Blood Pressure 109/64 121/60 Pulse Oximetry 95 95 95 12/22/21 08:36 Temperature Pulse Rate Respiratory Rate 18 Blood Pressure Pulse Oximetry 95 Intake/Output Intake/Output: Intake & Output 12/19/21 12/20/21 12/21/21 12/22/21 23:59 23:59 23:59 23:59 Intake Total 1230 1390 Output Total 700 1600 Balance 530 -210 Meds/Results Medications: Active Medications Generic Name Dose Route Start Last Admin Trad
[2021-12-22 14:30] VITALS: BP 108/58; PULSE 83; RESP 14; TEMP 36.4; O2SAT 97
[2021-12-22] MEDS: CELECOXIB 200 MG CAPSULE PO (16:33)
[2021-12-22 20:14] VITALS: BP 93/56; PULSE 77; RESP 16; TEMP 36.4; O2SAT 95
[2021-12-22] MEDS: diphenhydrAMINE HCl CAP 25 MG CAPSULE 50 MG PO (21:39)
[2021-12-23 04:01] VITALS: BP 115/58; PULSE 79; RESP 18; TEMP 36.3; O2SAT 96
[2021-12-23] MEDS: ASPIRIN 325 MG ENTERIC TABLET 650 MG PO (08:09)
[2021-12-23] MEDS: CELECOXIB 200 MG CAPSULE PO (08:09)
[2021-12-23] MEDS: SENNA/DOCUSATE SODIUM TABLET 2 TAB PO (08:09)
[2021-12-23] MEDS: CITALOPRAM HYDROBROMIDE 20 MG TABLET 40 MG PO (08:09)
[2021-12-23] MEDS: PANTOPRAZOLE 40 MG TABLET PO (08:09)
[2021-12-23] MEDS: polyethylene glycoL 3350 17 GM POWD.PACK PO (08:09)
[2021-12-23] MEDS: MULTIVITS W-FE,MIN CHEWABLE TABLET 1 TABLET PO (08:09)
--- NOTE | 2021-12-23 09:07 | PM.PNORT ---
Progress Note: A&P Assessment and Plan (1) S/P total hip arthroplasty: Qualifiers: Laterality: left Qualified Code(s): Z96.642 - Presence of left artificial hip joint Code(s): Z96.649 - Presence of unspecified artificial hip joint Status: Acute Assessment and Plan: POD #3: Left ZONIA Continue PT/OT. WBAT. Walker. Fall Precautions. DVT prophylaxis. SCDs. Incentive Spirometry. Pain control. Ice. Monitor dressing. Change before discharge. Dispo: Home with Home Health (2) Degenerative joint disease (DJD) of hip: Qualifiers: Osteoarthritis type: primary Laterality: bilateral Qualified Code(s): M16.0 - Bilateral primary osteoarthritis of hip Code(s): M16.9 - Osteoarthritis of hip, unspecified Status: Acute Subjective Subjective Date/Time Seen: 12/23/21 09:07 Post Op day: 3 Interval history: POD #3: Left ZONIA Improved progress with PT/OT this morning. Pain improved as well. Ready for discharge home today. Review of Systems Review of Systems: All systems reviewed & are unremarkable except as noted in HPI and below Constitutional: Constitutional: Denies chills, Denies fatigue, Denies fever(s), Denies night sweats and Denies weakness Cardiovascular: Cardiovascular: Denies chest pain, Denies palpitations and Denies dyspnea Respiratory: Respiratory: Denies cough, Denies dyspnea and Denies wheezing Gastrointestinal: Gastrointestinal: Denies abdominal pain, Denies diarrhea, Denies nausea and Denies vomiting Musculoskeletal: Musculoskeletal: Reports arthralgias (left hip ), Reports joint swelling (left hip ) and Denies numbness Neurologic: Denies numbness and Denies weakness Endocrine: Endocrine: Denies fatigue and Denies palpitations Allergic/Immunologic: Allergic/Immunologic: Denies wheezing Exam Const: General: comfortable and no acute distress Resp: Effort & Inspection: normal respiratory effort Cardio: Rate: regular rate Rhythm: regular rhythm GI: Inspection: non-distended Skin: General skin exam: normal color Wounds: wounds noted (incision left hip C/D/I ) Extrem: Left lower extremity: hip/thigh Details: tenderness Location: of the hip Location: laterally and anteriorly, swelling (thigh soft ) Location: of the hip (lateral. ), abnormal ROM (limitations with internal/external rotation and flexion/extension due to recent surgical intervention ) and other (incision lateral hip c/d/i. ), knee Details: normal to inspection and normal ROM; no tenderness and no swelling, lower leg (Negative Villa's Sign ) Details: no edema, ankle (+ankle dorsiflexion/plantarflexion ) Details: normal to inspection, no edema and normal ROM; no tenderness, no swelling and no warmth and foot Details: normal capillary refill, toes with normal ROM, vascular exam Details: dorsalis pedis pulse present and motor-sensory exam light-touch normal in all toes; no tenderness, no ecchymosis and no crepitus Psych: Mental Status: mental status grossly normal Affect: normal affect Objective Data Vital Signs Vital Signs: Vital Signs - 24 hr 12/22/21 14:30 12/22/21 20:14 12/23/21 04:01 Temperature 36.4 C L 36.4 C L 36.3 C L Pulse Rate 83 77 79 Respiratory Rate 14 16 18 Blood Pressure 108/58 L 93/56 L 115/58 L Pulse Oximetry 97 95 96 Intake/Output Intake/Output: Intake & Output 12/20/21 12/21/21 12/22/21 12/23/21 23:59 23:59 23:59 23:59 Intake Total 1230 1390 460 190 Output Total 700 1600 500 Balance 530 -210 -40 190 Meds/Results Medications: Active Medications Generic Name Dose Route Start Last Admin Trade Name Daljitq PRN Reason Stop Dose Admin Acetaminophen 650 mg 12/20/21 11:17 Acetaminophen 325 Mg Tablet PO Q6H PRN Mild Pain (1-3) or Fever Amlodipine Besylate 10 mg 12/22/21 09:00 12/22/21 08:47 Amlodipine Besylate 5 Mg Tablet PO 10 mg Q48H MEETA Administration Aspirin 650 mg 12/21/21 09:00 12/23/21 08:09 Aspirin 325 Mg Ente
--- NOTE | 2021-12-23 09:13 | PM.DS ---
DS: Admitting Diagnosis Discharge Date 12/23/21 Admitting Diagnosis Left Hip DJD DS: Discharge Diagnosis Discharge Diagnosis (1) S/P total hip arthroplasty: Qualifiers: Laterality: left Qualified Code(s): Z96.642 - Presence of left artificial hip joint Code(s): Z96.649 - Presence of unspecified artificial hip joint Status: Acute Assessment and Plan: POD #3: Left ZONIA Continue PT/OT. WBAT. Walker. Fall Precautions. DVT prophylaxis. SCDs. Incentive Spirometry. Pain control. Ice. Monitor dressing. Change before discharge. Dispo: Home with Home Health (2) Degenerative joint disease (DJD) of hip: Qualifiers: Osteoarthritis type: primary Laterality: bilateral Qualified Code(s): M16.0 - Bilateral primary osteoarthritis of hip Code(s): M16.9 - Osteoarthritis of hip, unspecified Status: Acute DS: Summary Hospital Course Reason for hospitalization: Left ZONIA Hospital Course: 61-year-old female admitted status post left total hip arthroplasty for postoperative medical management, pain control and physical and occupational therapy. Patient had slow progress on postop day 1 and postop day 2. Some difficulty with pain control and physical therapy. Labs and vitals have remained stable. On postop day 3, patient worked well with PT and OT and was deemed safe to be discharged home with [facility] this time. Patient will be discharged home will follow up in the outpatient orthopedic clinic in approximately 3 weeks. Discharge instructions discussed at length. All questions answered. Status at Discharge Functional status at discharge: uses cane/walker Overall status at discharge: patient is progressing back to baseline Time Spent with Patient Time attestation: Total time spent providing and/or coordinating discharge services: Time spent: Less than 30 minutes Discharge Plan Discharge Attending physician on discharge: Christopher Jeter Discharging Clinician: Aleyda Butcher Anticipated Discharge Date/Time: 12/22/21 15:00 Patient Disposition: Home Health Service Activity: may shower, no driving and follow weight bearing status Diet: as tolerated Wound Care Instructions: follow printed instructions Discharge Instructions: Per Care Coordination, patient to discharge with [facility] ) for PT/OT and senior living services. Post Op Total Hip Replacement Instructions Dr. Christopher Jeter [phone] ? Your dressing will be changed prior to your discharge. You will be sent home with one additional dressing to be changed on post op day 7 by the home health RN. You may remove the dressing on post op day 14. Your incision was closed with dermabond, allow the dermabond to fall off naturally once your dressing is removed. Do not pull at the dermabond or disrupt incision healing. ? You may shower with your dressing but do not submerge in a bath tub. ? Do not drive or operate machinery until you are released by Dr. Jeter. ? Do not walk without a walker for any reason until you are released by Dr. Jeter. ? Continue to apply ice to the hip intermittently for additional pain relief. Protect your skin with a towel or pillow case. ? Continue to follow strict total hip replacement precautions. ? Your first post op appointment was sent to you via mail preoperatively. If you have any questions or are unable to make your appointment, please contact our office for scheduling questions. ? Your medications have been sent to your pharmacy. You have been sent home with pain medication. We have also sent you with a stool softener as narcotics can cause constipation. Please keep this in mind during your postoperative recovery. If you are not experiencing regular bowel movements, please contact our office for further instruction. ? Please contact our office with any questions/concerns regarding your hip at [phone]. Patient Instructions: Antibiotic Form, D
--- OUTSIDE RECORDS SUMMARY | 2022-01-02 09:09 | XMS_ITS ---
:1960 Author Care Team Providers Name Role Phone DR. MYAH CLARK Primary Care Provider [phone] DR. MYAH CLARK Referring Provider [phone] Allergies Code Code System Name Reaction Severity Status Onset NKDA ? Medications Name Status Start Date Stop Date ? ? alprazolam 0.5 mg tablet Active ? Not donna ilable amitriptyline 25 mg tablet Active ? Not a vailable amlodipine 10 mg tablet Active ? Not avai lable citalopram 40 mg tablet Active ? Not avai lable dextroamphetamine-amphetamine 15 mg tablet Active ? Not available diazepam 5 mg tablet Active ? Not availab le TAKE 1 TABLET BY MOUTH THREE TIMES DAILY NEEDED FOR ANXIETY ergocalciferol (vitamin D2) 1,250 mcg Active ? Not available (50,000 unit) capsule Kenalog 10 mg/mL suspension for injection Active ? Not available In office injection administered by the provider lidocaine (PF) 10 mg/mL (1 %) injection solution Active ? Not available In office injection administered by the provider prednisone 10 mg tablet Active ? Not avai lable prednisone 10 mg tablets in a dose pack Active ? Not available Take 1 tab by mouth, 3 times a day for 3 daysTake 1 tab by mouth 2 times a day for 2 daysTake 1 tab by mouth once a day for 1 day tramadol 50 mg tablet Active ? Not availa ble Take 1 tablet every 6 hours by oral route. Problems Name Status Onset Date Source ? Trochanteric Bursitis of Left Hip Active 01/06/2021 ?
== END 2021-12-23 11:28 | disposition home health service (06) | DRG 470 ==
LOC: ANH2MED 12:15
PROVIDERS: Admitting Provider Orthopaedic Surgery; PCP Internal Medicine; Visit Provider Nurse Practitioner Family
PROC: 0SRB0JZ Replacement of Left Hip Joint with Synthetic Substitute, Open Approach (ICD-10-PCS; CPT 27130; principal; 2021-12-20 07:30)
DX: M16.12 Unilateral primary osteoarthritis, left hip (principal); F32.9 Major depressive disorder, single episode, unspecified; I10 Essential (primary) hypertension; F41.9 Anxiety disorder, unspecified; F90.9 Attention-deficit hyperactivity disorder, unspecified type; K21.9 Gastro-esophageal reflux disease without esophagitis; E55.9 Vitamin D deficiency, unspecified; Z87.891 Personal history of nicotine dependence; Z79.899 Other long term (current) drug therapy
CPT/HCPCS: 36415; 73501; 80048; 85025; 86850; 86900; 86901; 97110; 97116; 97161; 97165; 97530; 97535; A9270; C1776; J0171; J0690; J1100; J1170; J1200; J1885; J2250; J2270; J2405; J2704; J2710; J2795; J3010; J7030; J7120

== ENCOUNTER 2022-06-09 09:44 | Outpatient (CLI) | payer OTHER, SELFPAY ==
[2022-06-09 11:21] LABS: Basophils Absolute Auto 0.1 K/mm3 (0.0-0.1); Basophils Percent Auto 0.6 % (0.2-1.2); Eosinophils Absolute Auto 0.1 K/mm3 (0-0.3); Hematocrit 39.7 % (37.0-47.0); Immature Granulocyte Absolute 0.03 K/mm3 (0.00-0.031); Immature Granulocyte Percent A 0.3 % (0-0.5); Lymphocytes Absolute Auto 2.34 K/mm3 (0.9-3.2); Lymphocytes Percent Auto 23.6 % (18.3-44.2); Mean Corpuscular HGB Conc 32.7 g/dl (32-36); Mean Corpuscular Hemoglobin 30.4 pg (26-34); Mean Corpuscular Volume 92.8 fl (80-100); Monocytes Absolute Auto 0.6 K/mm3 (0.1-0.6); Monocytes Percent Auto 6.3 % (2.6-8.5); Neutrophils Absolute Auto 6.8 K/mm3 (1.3-6.7); Neutrophils Percent Auto 68.2 % (45.5-73.1); Platelet Count Result 326 k/mm3 (150-375); Red Blood Count 4.28 M/mm3 (4.2-5.4); Red Cell Distribution Width 13.4 % (11.5-14.5); White Blood Count 9.9 K/mm3 (4.5-10.0)
[2022-06-09 11:22] LABS: Appearance Urine Clear (Clear); Bilirubin Urine 1+ (Negative); Blood Urine 1+ (Negative); Color Urine Yellow (Yellow); Glucose Urine UA Negative (Negative); Ketones Urine Negative (Negative); Leukocyte Esterase Ur Negative LEU/UL (Negative); Nitrate Urine Negative (Negative); Protein Urine 1+ mg/dL (Negative); Specific Grav Ur >= 1.030 (1.001-1.035); Urobilinogen Urine 0.2 mg/dL (<2.0); pH Urine 5.5 (5.0-9.0)
[2022-06-09 11:30] LABS: Urine Cotinine NEGATIVE
[2022-06-09 11:33] LABS: Albumin Level 4.4 g/dL (3.5-5.1); Anion Gap 11 mmol/L (8-16); Blood Urea Nitrogen 19 mg/dL (7-17); Calcium 9.3 mg/dL (8.4-10.2); Carbon Dioxide 29 mmol/L (22-30); Chloride 104 mmol/L (98-107); Estimated Glomerular Filt Rate > 60; Glucose 96 mg/dL (65-110); Potassium 4.4 mmol/L (3.4-5.0); Sodium 144 mmol/L (137-145)
[2022-06-09 11:33] LABS: Mucus Urine Few /lpf; Squamous Epithelial Cell Urine Rare /hpf (Few); WBC Urine 0-3 /hpf
[2022-06-09 11:35] LABS: Prothrombin Time 13.1 Seconds (11.1-14.7)
[2022-06-09 11:36] LABS: Partial Thromboplastin Time 27.9 SECONDS (22.3-36.8)
[2022-06-09 11:39] LABS: Add Urine Microscopic? YES
== END 2022-06-09 09:45 | disposition home or self-care (01) ==
LOC: ANHSURGERY 09:55
PROVIDERS: PCP Internal Medicine; Visit Provider Orthopaedic Surgery
DX: M16.11 Unilateral primary osteoarthritis, right hip (principal); Z01.818 Encounter for other preprocedural examination
CPT/HCPCS: 80048; 80307; 81001; 82040; 83036; 85025; 85610; 85730; 86850; 86900; 86901; 87081

== ENCOUNTER 2022-06-21 19:15 | Observation (INO) | payer OTHER, SELFPAY ==
[2022-06-09 10:15] VITALS: BP 141/79; PULSE 77; RESP 16; TEMP 36.6; O2SAT 97; BMI 28.0
--- NOTE | 2022-06-09 10:28 | PC.NURSE ---
Report to the Outpatient Waiting Room, entrance under the green pavilion located off [facility], at time __9:00AM on date __06/20/22 . OR Time: __11:00AM . Time changes happen often and if your time is changed the preop area will call you the afternoon before. - You and your visitor will be asked to self-screen and do not enter if you have any COVID symptoms. - Only one visitor and NO children visitors are allowed at this time. - The patient visitor is requested to leave or wait in car when not with patient due to restrictions. - A mask is required within the hospital. Patients may have clear liquids (water, carbonated beverages, clear teas, apple juice) until 3 hours prior to surgery with a maximum of 20 ounces. - No food from midnight until time of surgery Take the following medications with a SIP of water the morning of surgery: _AMLODIPINE, CITALOPRAM, DIAZEPAM, HYDROCODONE NEEDED Medications to discontinue per physician HOLD VITAMINS/SUPPLEMENTS 7 DAYS PRE-OP, NO NSAIDS 7 DAYS PRE-OP Date to take last dose____06/13/22 Please no make-up, nail afghan, hairspray, perfume, deodorant, or body powder the day of surgery. No jewelry (including any body piercings) or valuables the day of surgery, leave them at home. Please take a shower or bath the night before, or the morning of, surgery with an antibacterial soap. Wear comfortable, loose fitting clothing. Children are encouraged to wear pajamas. - Jewelry must be removed prior to entering the operating room. Rings and piercings that are not removed may be cut off. - The hospital will not accept responsibility for valuables. - Please leave all valuables, including medications, at home the day of surgery. If you are going home after surgery, a licensed corrugated fastener driver must drive you home. - NO public transportation without another adult. - We recommend that an adult stay with you for 24 hours following discharge. - We also recommend that you do not drive, make important decision, drink alcoholic beverages, or take any drugs that were not prescribed by your health care provider for at least 24 hours after your discharge time. For Pediatric surgeries, we recommend two adults accompany the child home (only one inside the building at this time). Follow any additional instructions given to you from your surgeon. If you or anyone in your household have experienced Covid symptoms in the past week, please notify your surgeon or the nurse liaison at the phone number below for possible testing. Telephone instructions given to __PATIENT and asked if any additional questions and then verbalized understanding. Patient advised to call surgeon office or pre surgery nurse liaison [phone] if any additional questions.
--- NOTE | 2022-06-19 12:47 | WPDANESEPPF ---
Anes - Initial Pre Proc Eval Procedure: Operation Date: 06/20/22 11:00 Proposed Procedures p Right Total Hip Arthroplasty - Christopher Jeter MD Date/Time: 06/19/22 12:47 Surgeon: Christopher Jeter MD Pre Op Diagnosis: right hip DJD Patient Data Age: 62 Gender: F Height: 1.62 m Weight: 73.5 kg Last Vital Signs Temp 36.6 C 06/09/22 10:15 Pulse 77 06/09/22 10:15 Resp 16 06/09/22 10:15 BP 141/79 H 06/09/22 10:15 Pulse Ox 97 06/09/22 10:15 O2 Del Method Room Air 06/09/22 10:15 Allergies Allergy/AdvReac Type Severity Reaction Status Date / Time No Known Allergies Allergy Mild Verified 06/20/22 09:06 Home Medications Medication Instructions Recorded Confirmed Type diphenhydramine HCl 25 mg capsule 50 mg PO HS 07/01/21 06/20/22 History (Benadryl) amlodipine 10 mg tablet 10 mg PO DAILY 12/05/21 06/20/22 History melatonin 10 mg tablet 10 mg PO HS PRN Insomnia 12/05/21 06/20/22 History pediatric srimbvhl-hgor-mch 1 tablet PO DAILY 12/05/21 06/20/22 History diazepam 5 mg tablet (Valium) 5 mg PO TID PRN anxiety #90 tabs 04/10/22 06/20/22 Rx citalopram 40 mg tablet 40 mg PO QAM #90 tabs 04/21/22 06/20/22 Rx tramadol 50 mg tablet 50 mg PO Q6H PRN pain #60 tabs 05/17/22 06/20/22 Rx hydrocodone 5 mg-acetaminophen 325 1 tablet PO Q8H PRN pain #30 tabs 05/31/22 06/20/22 Rx mg tablet ascorbic acid 7.5 mg-vit E 7.5 2 tablet PO DAILY 06/09/22 06/20/22 History unit-biotin 1,250 mcg chewable tablet (Hair,Skin,Nails with Biotin) lansoprazole 15 mg capsule,delayed 15 mg PO DAILY 06/09/22 06/20/22 History release (Prevacid 24Hr) dextroamphetamine-amphetamine 15 15 mg PO BID #60 tabs 06/12/22 06/20/22 Rx mg tablet Patient hx anesthesia problems: none Family hx anesthesia problems: none Results Review: All pre-operative results and documents have been reviewed as part of the pre-operative evaluation. [facility] Past Medical History Medical History ADHD (attention deficit hyperactivity disorder) Adult ADHD Angioedema Anxiety state Benign essential hypertension BMI 31.0-31.9,adult Chronic hip pain, bilateral Chronic right hip pain Degenerative joint disease (DJD) of hip Depressive disorder Depressive disorder, not elsewhere classified Encounter for long-term (current) use of other medications Fasting hyperglycemia FH: cholecystectomy GERD (gastroesophageal reflux disease) Insomnia disorder Left hip pain On ad terminal makeup operator drug therapy Osteoarthrosis Postmenopausal Screening for colon cancer Screening for lipid disorders Screening mammogram, encounter for Smoking Unspecified sinusitis (chronic) Vitamin D deficiency Surgical History Surgical History History of cholecystectomy S/P total hip arthroplasty Family History Family History Father Cerebrovascular accident Mother Family history of malignant neoplasm Other Depression Diabetes mellitus Hypertension Social History Social History Smoking packs per day: 0.25 Smoking cigarettes per day: 5.0 Years smoked: 8 Smoking pack-years: 2.00 Smoking status: Former smoker Tobacco type: cigarettes Second hand tobacco smoke exposure: No Smoking end date: 08/17/21 Alcohol intake: never Substance use: current Substance use type: amphetamines and prescription drug Other substance usage details: Adderall for ADHD Living arrangements: alone Gender identity (if verbalized by the patient): Female Spiritual care concerns: No Anes - Eval Final PreProcedure Day of Procedure 06/19/22 12:47 Patient weight: overweight Heart: regular rate and rhythm Lungs: clear to auscultation Airway: Mallampati scale class II Neurological: alert and oriented Last oral intake: >/= 8 hours ASA classification:
[2022-06-20] VITALS (14 sets, daily range): BP systolic 104–137; BP diastolic 53–73; PULSE 66–84; RESP 10–18; TEMP 36.3–37; O2SAT 90–100
--- NOTE | 2022-06-20 07:19 | WPDHPUPDATE1 ---
History and Physical Update Update Date/Time: 06/20/22 07:19 History and Physical has been reviewed, including an updated exam of the patient. There are NO changes in the patient's condition. Risks, benefits, and alternatives have been discussed and questions answered. Patient agrees to proceed with procedure.
[2022-06-20] MEDS: LACTATED RINGERS 1,000 ML 30 ML IV CONT ×2 (09:29→14:16)
[2022-06-20] MEDS: TRANEXAMIC ACID 1,000MG/ISO100 1,000 MG/100 ML BAG 200 MG IVPB (10:52)
[2022-06-20] MEDS: ceFAZolin 2 GM/D5W 50 ML 2 GM/50 ML BAG IVPB ×2 (11:11→18:14)
[2022-06-20] MEDS: TRANEXAMIC ACID 1,000 MG/10 ML AMPUL 1000 MG IV PUSH (13:10)
[2022-06-20] MEDS: KETOROLAC 30 MG/ML VIAL (*BKC) IV PUSH (14:10)
[2022-06-20] MEDS: fentaNYL CITRATE INJ (*CRX) 100 MCG/2 ML VIAL 25 MCG IV PUSH ×2 (14:39→14:42)
--- NOTE | 2022-06-20 14:47 | W.PM.PROC2 ---
Procedure Note - Detailed Date of Procedure 06/20/22 Pre-op Diagnosis right hip DJD Post-op Diagnosis Same Procedure Performed R ZONIA Surgeon Christopher Jeter MD Anesthesia General Description of Procedure THE PATIENT WAS TAKEN TO THE OPERATING ROOM IN STABLE CONDITION AND WAS PLACED IN THE LATERAL DECUBITUS AND THE RIGHT LOWER EXTREMITY WAS PREPPED AND DRAPED IN THE STERILE FASHION. INCISION WAS MADE IN THE POSTERIOR LATERAL SIDE OF THE HIP, DOWN TO THE FASCIA LAYER. THE FASCIA WAS INCISED. THE HIP WAS EXPOSED. THE SHORT EXTERNAL ROTATORS WERE EXPOSED. THE SCIATIC NERVE WAS IDENTIFIED. INCISION WAS MADE THROUGH THE SHORT EXTERNAL ROTATORS AND THE CAPSULE OF THE HIP JOINT. THE HIP WAS DISLOCATED. AN OSTEOTOMY WAS MADE TO THE FEMORAL NECK ABOUT 1 CM PROXIMAL TO THE LESSER TROCHANTER. THE ACETABULUM WAS EXPOSED. THERE WAS SEVERE DJD SEEN. BEGINNING WITH A 44 REAMER THE ACETABULUM WAS REAMED TO 49 MM. A 49 MM TRIAL WAS PLACED IN 35 DEG OF ABDUCTION AND ANTEVERSION WAS IN ALIGNMENT WITH THE TRANS ACETABULAR LIGAMENT. THE FIT WAS EXCELLENT. THE TRIAL WAS REMOVED. A 50 MM BIOMET G7 COMPONENT WAS THEN TAPPED IN TO PLACE IN 35 DEG OF ABDUCTION AND ANTEVERSION IN ALIGNMENT WITH THE TRANSVERSE ACETABULAR LIGAMENT. THE FIT WAS EXCELLENT. THE ACETABULAR LINER WAS PLACED AND CHECKED FOR STABILITY. NEXT THE FEMUR WAS PREPARED WITH INITIAL CANAL FINDER THEN SEQUENTIAL BROACHING WITH A TAPERLOC HIP SYSTEM, UNTIL A 10 BROACH FIT WELL IN 15 OF ANTEVERSION. A -3 STANDARD OFFSET NECK WITH 36 MM HEAD TRIAL WAS PLACED. THE SHUCK TEST WAS EXCELLENT AND THE STABILITY IN FLEXION AND ROTATION WAS EXCELLENT. LEG LENGTHS WERE GROSSLY EQUAL. TRIALS WERE REMOVED. A BIOMET TAPERLOC 10 STEM WAS PLACED WITH A STANDARD OFFSET NECK. THE FIT WAS EXCELLENT IN 15 DEG OF ANTEVERSION. A -3 CERAMIC 36 MM FEMORAL HEAD WAS PLACED. THE HIP WAS TRIALED AND THE STABILITY WAS EXCELLENT WERE THE LEG LENGTHS AND THE SHUCK TEST. THE WOUND WAS IRRIGATED WITH STERILE BETADINE AND WATER FOR 3 MIN. THEN WASHED AGAIN. THE SCIATIC NERVE WAS IDENTIFIED AGAIN. THE CAPSULE AND THE EXTERNAL ROTATORS WERE APPROXIMATED WITH NUMBER 1 VICRYL. THE FASCIA WITH No 2 QUIL AND THE SUB CUTANEOUS LAYER WITH 2-0 ABSORBABLE SUTURE AND A RUNNING 3-0 SUBCUTICULAR STITCH FOR THE SKIN. DERMABOND WAS PLACED AND STERILE DRESSING WAS APPLIED. PATIENT WAS PLACED BACK ON TO THE SUPINE POSITION AND WAS EXTUBATED Estimated Blood Loss -150.0 Complications No immediate complications Condition Stable Disposition PACU
[2022-06-20] MEDS: HYDROcodone/acetaminophen (*CRX) 7.5-325 MG TABLET 1 TAB PO (16:13)
[2022-06-20] MEDS: DEXTROSE 5%/0.45% SOD CHL 1,000 ML 80 ML IV CONT (16:13)
--- NOTE | 2022-06-20 16:21 | ADMGEN ---
This patient, Laura Castro, was admitted to Medical Room 252-01. Patient/family oriented to hospital policies and general routines including ID bracelet, bed and alarms, visiting hours, pain management, procedures, bathroom and other care routines, personal items, smoking policy, room service/diet, and visiting hours. Information on how to activate the Rapid Response Team has been discussed. Patient/Family are encouraged to report perceived risks to care and to ask questions if they do not understand what they are told or what they should do.
[2022-06-20] MEDS: SENNA/DOCUSATE SODIUM TABLET 2 TAB PO (16:25)
[2022-06-20] MEDS: KETOROLAC 15 MG/ML VIAL (*BKC) IV PUSH ×2 (18:14→23:51)
[2022-06-20] MEDS: diphenhydrAMINE HCl CAP 25 MG CAPSULE 50 MG PO (20:25)
[2022-06-20] MEDS: diazePAM (*CRX) 5 MG TABLET PO (20:28)
--- NOTE | ~2022-06-21 | XR_ITS ---
EXAMINATION: XR hip RT min 2V DATE: 06/20/2022 14:30 INDICATION: Postoperative evaluation following right total hip arthroplasty TECHNIQUE: Anteroposterior and lateral views of the right hip were obtained. COMPARISON: Radiographs dated 06/12/2022 FINDINGS: Interval placement of a right total hip arthroplasty which appears well seated in near anatomic align ment. Expected subcutaneous gas in the postoperative bed. Partially visualized contralateral left tot al hip arthroplasty. No fractures identified. IMPRESSION: 1. Right total hip arthroplasty, negative for postoperative purposes. Reviewed, dictated and finalized at location A.
[2022-06-21 00:24] VITALS: BP 128/64; PULSE 80; RESP 16; TEMP 37.1; O2SAT 94
[2022-06-21 05:20] LABS: Basophils Percent Auto 0.2 % (0.2-1.2); Eosinophils Percent Auto 0.1 % (0-4.4); Hematocrit 30.5 % (37.0-47.0); Hemoglobin 10.1 g/dL (12.0-15.0); Immature Granulocyte Absolute 0.08 K/mm3 (0.00-0.031); Immature Granulocyte Percent A 0.5 % (0-0.5); Lymphocytes Absolute Auto 2.63 K/mm3 (0.9-3.2); Mean Corpuscular HGB Conc 33.1 g/dl (32-36); Mean Corpuscular Volume 90.5 fl (80-100); Mean Platelet Volume 9.6 fl (7.4-10.4); Monocytes Absolute Auto 1.2 K/mm3 (0.1-0.6); Neutrophils Absolute Auto 11.5 K/mm3 (1.3-6.7); Neutrophils Percent Auto 74.2 % (45.5-73.1); Platelet Count Result 277 k/mm3 (150-375); Red Blood Count 3.37 M/mm3 (4.2-5.4); Red Cell Distribution Width 12.9 % (11.5-14.5); White Blood Count 15.5 K/mm3 (4.5-10.0)
[2022-06-21 05:30] VITALS: BP 123/60; PULSE 79; RESP 14; TEMP 36.7; O2SAT 97
[2022-06-21 05:30] LABS: Anion Gap 8 mmol/L (8-16); Blood Urea Nitrogen 13 mg/dL (7-17); Calcium 8.5 mg/dL (8.4-10.2); Carbon Dioxide 28 mmol/L (22-30); Chloride 102 mmol/L (98-107); Estimated CRCL calculation 80 ml/min; Estimated Glomerular Filt Rate > 60; Glucose 104 mg/dL (65-110); Potassium 3.4 mmol/L (3.4-5.0); Sodium 138 mmol/L (137-145)
[2022-06-21] MEDS: KETOROLAC 15 MG/ML VIAL (*BKC) IV PUSH ×3 (05:44→17:16)
[2022-06-21] MEDS: diazePAM (*CRX) 5 MG TABLET PO ×2 (05:45→21:37)
--- NOTE | 2022-06-21 07:34 | PM.PNORT ---
Progress Note: A&P Assessment and Plan (1) S/P total hip arthroplasty: Qualifiers: Laterality: left Qualified Code(s): Z96.642 - Presence of left artificial hip joint Code(s): Z96.649 - Presence of unspecified artificial hip joint Status: Acute Assessment and Plan: POD 1 DOING WELL. GOOD PROGRESS WITH PT. OK TO DC HOME. F/U IN 3 WEEKS Subjective Subjective Date/Time Seen: 06/21/22 07:34 POD 1 DOING WELL. NO CALF PAIN Exam Extrem: Other: VSS AFEBRILE DRESSING DRY NV INTACT NEG HOMANS SIGN Objective Data Vital Signs Vital Signs: Vital Signs - 24 hr 06/20/22 09:17 06/20/22 14:16 06/20/22 14:30 Temperature 36.6 C Pulse Rate 70 69 71 Respiratory Rate 16 13 13 Blood Pressure 107/63 104/65 110/57 L Pulse Oximetry 97 100 100 Oxygen Delivery Room Air Simple Face Mask Simple Face Mask Oxygen Flow Rate 8 6 06/20/22 14:45 06/20/22 14:49 06/20/22 15:00 Temperature Pulse Rate 71 74 84 Respiratory Rate 12 14 18 Blood Pressure 118/60 124/71 Pulse Oximetry 90 99 100 Oxygen Delivery Room Air Nasal Cannula Nasal Cannula Oxygen Flow Rate 2 3 06/20/22 15:15 06/20/22 15:30 06/20/22 15:50 Temperature 36.3 C L Pulse Rate 68 66 72 Respiratory Rate 10 L 12 14 Blood Pressure 124/68 137/73 128/66 Pulse Oximetry 100 100 100 Oxygen Delivery Nasal Cannula Nasal Cannula Oxygen Flow Rate 3 3 06/20/22 16:05 06/20/22 16:35 06/20/22 17:21 Temperature 36.7 C 36.7 C Pulse Rate 68 77 Respiratory Rate 14 14 Blood Pressure 129/62 133/69 Pulse Oximetry 100 100 98 Oxygen Delivery Nasal Cannula Oxygen Flow Rate 1 06/20/22 18:20 06/20/22 20:12 06/21/22 00:24 Temperature 37.0 C 36.8 C 37.1 C Pulse Rate 68 72 80 Respiratory Rate 16 16 16 Blood Pressure 117/53 L 116/60 128/64 Pulse Oximetry 98 96 94 Oxygen Delivery Oxygen Flow Rate 06/21/22 05:30 Temperature 36.7 C Pulse Rate 79 Respiratory Rate 14 Blood Pressure 123/60 Pulse Oximetry 97 Oxygen Delivery Oxygen Flow Rate Intake/Output Intake/Output: Intake & Output 06/18/22 06/19/22 06/20/22 06/21/22 23:59 23:59 23:59 23:59 Intake Total 1645 450 Output Total 1000 Balance 1645 -550 Meds/Results Medications: Active Medications Generic Name Dose Route Start Last Admin Trade Name Freq PRN Reason Stop Dose Admin Hydrocodone Bitart/Acetaminophen 1 tab 06/20/22 15:42 06/20/22 16:13 Hydrocodone/Acetaminophen (*Crx) 7.5-325 Mg Tablet PO 1 tab Q3H PRN Administration Pain Rated 4-6 Hydrocodone Bitart/Acetaminophen 2 tab 06/20/22 15:42 Hydrocodone/Acetaminophen (*Crx) 7.5-325 Mg Tablet PO Q6H PRN Pain Rated 7-10 Amlodipine Besylate 10 mg 06/21/22 09:00 Amlodipine Besylate 5 Mg Tablet PO DAILY [facility] Aspirin 650 mg 06/21/22 09:00 Aspirin 325 Mg Enteric Tablet PO DAILY [facility] Citalopram Hydrobromide 40 mg 06/21/22 09:00 Citalopram Hydrobromide 20 Mg Tablet PO QAM [facility] Diazepam 5 mg 06/20/22 15:42 06/21/22 05:45 Diazepam (*Crx) 5 Mg Tablet PO 5 mg TID PRN Administration anxiety Diphenhydramine HCl 50 mg 06/20/22 21:00 06/20/22 20:25 Diphenhydramine Hcl Cap 25 Mg Capsule PO 50 mg HS MEETA Administration Hydroxyzine HCl 50 mg 06/20/22 15:42 Hydroxyzine Hcl 25 Mg Tablet PO Q4H PRN Itching Cefazolin Sodium 2 gm in 50 mls @ 100 mls/hr 06/20/22 19:00 06/20/22 18:58 Ancef 2 Gm/D5w 50 Ml IVPB 06/21/22 11:29 Infused Q8H [facility] Infusion Ketorolac Tromethamine 15 mg 06/20/22 18:00 06/21/22 05:44 Ketorolac 15 Mg/Ml Vial (*Bkc) IV PUSH 06/21/22 18:01 15 mg Q6HR MEETA Administration Miscellaneous Information 0 each 06/20/22 00:01 Adderall Is Nonformulary - Can This Be Held While Inpatient? XX 07/20/22 00:00 CLARIFY MEETA Naloxone HCl 0.1 mg 06/20/22 15:42 Naloxone Hcl 0.4 Mg/Ml Vial IV PUSH Q2M PRN Opiate Reversal Non-Formulary Medication 15 mg
[2022-06-21] MEDS: ceFAZolin 2 GM/D5W 50 ML 2 GM/50 ML BAG IVPB ×2 (07:58→16:25)
[2022-06-21] MEDS: ONDANSETRON INJ 4 MG/2 ML VIAL IV PUSH (07:59)
[2022-06-21] MEDS: ASPIRIN 325 MG ENTERIC TABLET 650 MG PO (08:05)
[2022-06-21] MEDS: amLODIPine BESYLATE 5 MG TABLET 10 MG PO (08:05)
[2022-06-21] MEDS: PANTOPRAZOLE 40 MG TABLET PO (08:06)
[2022-06-21] MEDS: CITALOPRAM HYDROBROMIDE 20 MG TABLET 40 MG PO (08:06)
[2022-06-21] MEDS: SENNA/DOCUSATE SODIUM TABLET 2 TAB PO ×2 (08:06→16:25)
[2022-06-21] MEDS: polyethylene glycoL 3350 17 GM POWD.PACK PO (08:06)
--- NOTE | 2022-06-21 09:28 | P.PNAN_ITS ---
Anes - Prog Note Post-Op Date/Time: 06/21/22 09:28 Cardiovascular status: normal Respiratory status: normal Airway patency: baseline Mental status: baseline Post-Op hydration status: normal Vital Signs: Last Vital Signs Temp 98.1 F 06/21/22 05:30 Pulse 79 06/21/22 05:30 Resp 14 06/21/22 05:30 BP 123/60 06/21/22 05:30 Pulse Ox 97 06/21/22 05:30 O2 Del Method Room Air 06/21/22 07:21 O2 Flow Rate 1 06/20/22 17:21 Pain Score (VAS): 0/10 I/O: Intake & Output 06/20/22 06/21/22 06/21/22 23:59 07:59 15:59 Intake Total 865 450 Output Total 1000 Balance 865 -550 Laboratory Tests 06/21/22 04:54 06/21/22 04:54 06/21/22 06/21/22 04:54 04:54 WBC 15.5 H RBC 3.37 L Hgb 10.1 L Hct 30.5 L MCV 90.5 MCH 30.0 MCHC 33.1 RDW 12.9 Plt Count 277 MPV 9.6 Immature Gran % (Auto) 0.5 Neut % (Auto) 74.2 H Lymph % (Auto) 17.0 L [place] % (Auto) 8.0 Eos % (Auto) 0.1 Baso % (Auto) 0.2 Lymph # (Auto) 2.63 [place] # (Auto) 1.2 H Eos # (Auto) 0.0 Baso # (Auto) 0.0 Abs Immat Gran (auto) 0.08 H Absolute Neuts (auto) 11.5 H Absolute Nucleated RBC 0.0 Nucleated RBC % 0.0 Sodium 138 Potassium 3.4 Chloride 102 Carbon Dioxide 28 Anion Gap 8 BUN 13 D Creatinine 0.60 L Estim Creat Clear Calc 80 Estimated GFR > 60 Glucose 104 Calcium 8.5 Post-procedural complaints: none Patient Feedback: Patient satisfied with anesthetic care.
[2022-06-21 11:19] VITALS: BP 121/63; PULSE 76; RESP 16; TEMP 37; O2SAT 94
[2022-06-21 14:54] VITALS: BP 112/58; PULSE 76; RESP 16; TEMP 36.8; O2SAT 95
[2022-06-21 18:30] VITALS: BP 115/57; PULSE 77; RESP 20; TEMP 37.1; O2SAT 96
[2022-06-21] MEDS: diphenhydrAMINE HCl CAP 25 MG CAPSULE 50 MG PO (20:36)
[2022-06-21 21:00] VITALS: BP 101/48; PULSE 86; RESP 18; TEMP 37.1; O2SAT 95
[2022-06-21] MEDS: HYDROcodone/acetaminophen (*CRX) 7.5-325 MG TABLET 2 TAB PO (23:41)
[2022-06-22 01:52] VITALS: BP 114/70; PULSE 81; RESP 14; TEMP 36.9; O2SAT 94
[2022-06-22 06:00] VITALS: BP 128/62; PULSE 83; RESP 14; TEMP 36.5; O2SAT 91
[2022-06-22] MEDS: amLODIPine BESYLATE 5 MG TABLET 10 MG PO (08:48)
[2022-06-22] MEDS: ASPIRIN 325 MG ENTERIC TABLET 650 MG PO (08:48)
[2022-06-22] MEDS: CITALOPRAM HYDROBROMIDE 20 MG TABLET 40 MG PO (08:48)
[2022-06-22] MEDS: polyethylene glycoL 3350 17 GM POWD.PACK PO (08:49)
[2022-06-22] MEDS: SENNA/DOCUSATE SODIUM TABLET 2 TAB PO (08:49)
[2022-06-22] MEDS: PANTOPRAZOLE 40 MG TABLET PO (08:49)
[2022-06-22 08:50] VITALS: O2SAT 94
[2022-06-22] MEDS: HYDROcodone/acetaminophen (*CRX) 7.5-325 MG TABLET 2 TAB PO (08:50)
--- NOTE | 2022-06-22 09:32 | PM.PNORT ---
Progress Note: A&P Assessment and Plan (1) S/P total hip arthroplasty: Qualifiers: Laterality: right Qualified Code(s): Z96.641 - Presence of right artificial hip joint Code(s): Z96.649 - Presence of unspecified artificial hip joint Status: Acute Assessment and Plan: POD #2 : Right ZONIA Continue PT/OT. WBAT. Walker. HIGH FALL RISK. Continue pain control. Ice hip. Protect skin. DVT prophylaxis with Aspirin. SCDs. Incentive Spirometry Use reviewed. Monitor Dressing. Change prior to discharge. Bowel Regimen. Dispo: Home independently pending progress with PT/OT Plan Patient refusing HH at home. Dr. Jeter aware. Reviewed physical exam, history and plan with Dr. Jeter. Agrees with current POC. No further recommendations. Subjective Subjective Date/Time Seen: 06/22/22 09:32 Post Op day: 2 Principal diagnosis: Right Hip DJD Interval history: POD #2: Right Hip DJD Patient hopeful for discharge home today. Refusing PT/OT and RN at home with home health. No concerns. Feels prepared for d/c home. Review of Systems Review of Systems: All systems reviewed & are unremarkable except as noted in HPI and below Constitutional: Constitutional: Denies chills, Denies fever(s), Denies headache(s), Denies lethargy and Reports weakness ENT: Denies headache(s) Cardiovascular: Cardiovascular: Denies chest pain, Denies diaphoresis, Denies lightheadedness, Denies palpitations, Denies dyspnea and Denies dyspnea on exertion Respiratory: Respiratory: Denies cough, Denies dyspnea and Denies dyspnea on exertion Gastrointestinal: Gastrointestinal: Denies constipation, Denies diarrhea, Denies nausea and Denies vomiting Genitourinary: Genitourinary: Reports urinary frequency, Denies dysuria and Denies urinary hesitancy Musculoskeletal: Musculoskeletal: Reports joint swelling (Right Hip ) and Reports limited range of motion (Right Hip due to recent surgery ) Neurologic: Denies headache(s) and Reports weakness Endocrine: Endocrine: Denies palpitations Exam Const: General: comfortable and no acute distress Resp: Effort & Inspection: normal respiratory effort Cardio: Rate: regular rate Rhythm: regular rhythm GI: Inspection: non-distended Skin: General skin exam: normal color Other: Incision right hip c/d/i. Surrounding tissue without redness/warmth. Mild swelling consistent with recent surgery. No drainage. Neuro: Cognition (Neuro): normal cognition Speech: normal speech Extrem: Right lower extremity: normal to inspection, normal capillary refill, hip/thigh Details: tenderness Location: of the hip (Thigh soft ) Location: laterally and anteriorly, swelling Location: at the hip, abnormal ROM (limited consistent with recent surgery ) Details: pain with active ROM during and pain with passive ROM during and other (Incision c/d/i. ); no deformity and no unusual warmth, knee Details: normal to inspection; no tenderness and no swelling, lower leg (Negative Villa's Sign ) Details: normal to inspection and no edema; no tenderness, ankle (+ankle dorsiflexion/plantarflexion) Details: normal to inspection and no edema; no tenderness, no swelling and no ecchymosis and foot Details: normal capillary refill, toes with normal ROM, vascular exam Details: dorsalis pedis pulse present and motor-sensory exam Details: light-touch normal; no tenderness Objective Data Vital Signs Vital Signs: Vital Signs - 24 hr 06/21/22 11:19 06/21/22 14:54 06/21/22 18:30 Temperature 37.0 C 36.8 C 37.1 C Pulse Rate 76 76 77 Respiratory Rate 16 16 20 Blood Pressure 121/63 112/58 L 115/57 L Pulse Oximetry 94 95 96 Oxygen Delivery 06/21/22 20:00 06/22/22 01:52 06/21/22 21:00 Temperature 36.9 C 37.1 C Pulse Rate 81 86 Respiratory Rate 14 18 Blood Pressure 114/70 101/48 L Pulse Oximetry 94 95 Oxygen Delivery Room Air 06/22/22 06:00 Temperature 36.5 C Pulse Rate 83 Respiratory Rate 14 Blood Pressure 1
--- NOTE | 2022-06-22 09:47 | PM.DS ---
DS: Admitting Diagnosis Discharge Date 06/22/22 Admitting Diagnosis Right Hip DJD DS: Discharge Diagnosis Discharge Diagnosis (1) S/P total hip arthroplasty: Qualifiers: Laterality: right Qualified Code(s): Z96.641 - Presence of right artificial hip joint Code(s): Z96.649 - Presence of unspecified artificial hip joint Status: Acute Assessment and Plan: POD #2 : Right ZONIA Continue PT/OT. WBAT. Walker. HIGH FALL RISK. Continue pain control. Ice hip. Protect skin. DVT prophylaxis with Aspirin. SCDs. Incentive Spirometry Use reviewed. Monitor Dressing. Change prior to discharge. Bowel Regimen. Dispo: Home independently pending progress with PT/OT Plan Patient refusing HH at home. Dr. Jeter aware. Reviewed physical exam, history and plan with Dr. Jeter. Agrees with current POC. No further recommendations. DS: Summary Hospital Course Reason for hospitalization: Right ZONIA Hospital Course: 62 year old female admitted s/p RIGHT ZONIA for postoperative medical management, paint control and mobilization with PT/OT. Patient progressed slow on POD #1 with PT/OT. Improvement made on POD #2. Patient feels prepared to go home. Pain and vitals stable throughout. She have been cleared to be discharged home with home health at this time. Patient is however refusing home health. She has family who is planned to help her. She is refusing nursing care as well. Dr. Jeter has approved this. Follow up planned for 3 weeks in the outpatient orthopedic clinic with Dr. Jeter. Status at Discharge Functional status at discharge: uses cane/walker Overall status at discharge: patient is progressing back to baseline Time Spent with Patient Time attestation: Total time spent providing and/or coordinating discharge services: Exam Const: General: comfortable and no acute distress Resp: Effort & Inspection: normal respiratory effort Cardio: Rate: regular rate Rhythm: regular rhythm GI: Inspection: non-distended Skin: General skin exam: normal color Other: Incision right hip c/d/i. Surrounding tissue without redness/warmth. Mild swelling consistent with recent surgery. No drainage. Neuro: Cognition (Neuro): normal cognition Speech: normal speech Extrem: Right lower extremity: normal to inspection, normal capillary refill, hip/thigh Details: tenderness Location: of the hip (Thigh soft ) Location: laterally and anteriorly, swelling Location: at the hip, abnormal ROM (limited consistent with recent surgery ) Details: pain with active ROM during and pain with passive ROM during and other (Incision c/d/i. 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 Christopher Jeter [phone] Your dressing will be changed prior to your discharge. You will be sent home with one additional dressing to be changed on post op day 7 by the home health RN. You may remove the dressing on post op day 14. Your incision was closed with dermabond, allow the dermabond to fall off naturally once yo
[2022-06-22 10:44] VITALS: BP 100/52; PULSE 70; RESP 14; TEMP 36.8; O2SAT 94
== END 2022-06-22 11:53 | disposition home or self-care (01) ==
LOC: ANHSURGERY 19:25 → ANH2MED 19:25
PROVIDERS: Admitting Provider Orthopaedic Surgery; PCP Internal Medicine; Visit Provider Orthopaedic Surgery
PROC: (CPT 27130; principal; 2022-06-20 11:00)
DX: M16.11 Unilateral primary osteoarthritis, right hip (principal); F90.9 Attention-deficit hyperactivity disorder, unspecified type; F41.1 Generalized anxiety disorder; F32.A Depression, unspecified; K21.9 Gastro-esophageal reflux disease without esophagitis; M19.90 Unspecified osteoarthritis, unspecified site; E66.3 Overweight; Z68.28 Body mass index [BMI] 28.0-28.9, adult; F15.90 Other stimulant use, unspecified, uncomplicated; F19.90 Other psychoactive substance use, unspecified, uncomplicated; Z87.891 Personal history of nicotine dependence; Z79.891 Long term (current) use of opiate analgesic; Z79.899 Other long term (current) drug therapy; Z84.89 Family history of other specified conditions
CPT/HCPCS: 27130; 36415; 73502; 80048; 80307; 81001; 82040; 83036; 85025; 85610; 85730; 86850; 86900; 86901; 87081; 97110; 97116; 97161; 97165; 97535; A9270; C1776; G0378; J0131; J0171; J0330; J0690; J1100; J1170; J1885; J2250; J2270; J2405; J2704; J2710; J2795; J3010; J7120